=== PATIENT | female | born 1950 | race Caucasian/White ===

== ENCOUNTER 2016-09-29 11:51 | Day surgery (SDC) | payer OTHER ==
[2016-09-28 12:49] VITALS: BMI 34.3
[~2016-09-29 11:51] MED LIST: LACTATED RINGERS 1,000 ML IV SCH
[2016-09-29] MEDS ORDERED: LIDOCAINE 1% 20 ML VIAL (10MG/ML) FOR IV START INTRADERMA ONE (12:20)
[2016-09-29 12:23] VITALS: RESP 16; TEMP 98.2
[2016-09-29] MEDS ORDERED: PROPOFOL 10 MG/ML 20 ML VIAL IV ONE (12:32)
[2016-09-29] MEDS ORDERED: LIDOCAINE 1% INJ 10MG/ML (20 ML MDV) ONE (12:32)
--- NOTE | 2016-09-29 12:54 | P.PCN ---
Date of Procedure: 09/29/16 Procedure(s) Performed: Procedure: Colonoscopy and polypectomy. Preoperative diagnosis: Screening for neoplasia, patient has history of colon polyps. Postoperative diagnosis: Small sigmoid polyp snared but no large polyps or cancer. Preparation HalfLytely prep. Sedation was provided by anesthesia. Brief clinical history: The patient is a 66-year-old female who is referred for this evaluation for screening for neoplasia. She has family history of colon cancer in her mother and her last colonoscopy was around 10 years ago. She has no abdominal complaints, bleeding or anemia. Procedure: With the patient on her left lateral decubitus position and after informed consent and adequate sedation, the perianal area was inspected and it did not show any fissures or fistulas. He were no masses felt on digital rectal examination. The Olympus CFQ 160L video colonoscope was then inserted in the rectum and the usual fashion and advanced to the cecum. There was a small polyp in the sigmoid which was snared and retrieved by suction but there were no large polyps or cancer. I retroflexed endoscope in the rectum before the endoscope was withdrawn. The patient tolerated the procedure well. Plan: The patient was reassured. She'll follow-up with you as planned and I recommended a repeat exam in 5 years.
[2016-09-29 13:09] VITALS: BP 135/85; PULSE 81
== END 2016-09-29 13:38 | disposition home or self-care (01) ==
LOC: ORWHC2ENDO 11:51
DX: Z12.11 Encounter for screening for malignant neoplasm of colon (principal); K63.5 Polyp of colon; Z80.0 Family history of malignant neoplasm of digestive organs
CPT/HCPCS: 88305; 45385; J2001; J2704; 99153